=== PATIENT | female | born 1980 | race Caucasian/White ===

== ENCOUNTER → 2016-12-01 09:09 | Outpatient (CLI) | payer MEDICAID | END | disposition home or self-care (01) | LOC: D.US 09:09 | DX: R10.11 Right upper quadrant pain (principal) ==

== ENCOUNTER → 2016-12-08 15:33 | Outpatient (CLI) | payer MEDICAID | END | disposition home or self-care (01) | LOC: D.LDO 15:33 | DX: Z34.03 Encounter for supervision of normal first pregnancy, third trimester (principal) ==

== ENCOUNTER 2017-01-07 05:59 | Inpatient (IN) | payer MEDICAID ==
[~2017-01-07] VITALS: Ht 167.6 cm; Wt 68.5 kg
[2017-01-07 06:26] VITALS: BP 111/69; Ht 167.6 cm; Wt 68.5 kg
[2017-01-07 08:09] LABS: HEMATOCRIT 30.9 % (36.0-48.0); HEMOGLOBIN 10.4 g/dL (12-16); MCH 31.7 pg (26.0-34.0); MCHC 33.7 g/dL (31.0-37.0); MCV 94.2 fL (80.0-100.0); MEAN PLATELET VOLUME 12.5 fL (7.4-10.4); RBC 3.28 10x6/uL (4.00-5.40); RDW 14.3 % (11.5-14.5); WBC 18.2 10x3/uL (4.8-10.8)
[2017-01-07 08:21] LABS: UDS - AMPHET NEGATIVE QUAL (NEGATIVE); UDS - BARB NEGATIVE QUAL (NEGATIVE); UDS - BENZO NEGATIVE QUAL (NEGATIVE); UDS - COCAINE NEGATIVE QUAL (NEGATIVE); UDS - METH NEGATIVE QUAL (NEGATIVE); UDS - OPIATE NEGATIVE QUAL (NEGATIVE); UDS - PCP NEGATIVE QUAL (NEGATIVE); UDS - THC POSITIVE QUAL (NEGATIVE)
--- NOTE | 2017-01-07 20:41 | NUR ---
PT AMBULATORY TO ROOM 1273 FOR CONTINUED POST CARE. PT ORIENTED TO ROOM, BATHROOM, CL USE, AND BEDRAILS. S/O AT BEDSIDE WITH INFANT IN CRIB. PT VERBALIZED UNDERSTANDING OF ROOM ORIENTATION. INSTRUCTED TO CL RN FOR NEXT VOID TO MEASURE, VERBALIZED UNDERSTANDING. BED IN LOW POSITION WITH UPPER SIDE RAILS RAISED X2. CL AND PHONE WITHIN REACH. EXTRA LINENS PROVIDED FOR S/O. SODA GIVEN PER REQUEST. DENIES ADDITIONAL NEEDS AT THIS TIME. WILL CONT TO MONITOR AND ASSIST PRN.
--- NOTE | 2017-01-07 21:04 | NUR ---
PT RECEIVED SITTING UP IN BED. VSS. PT DENIES NEEDS AT THIS TIME. BED LOW. PHONE AND CALL LIGHT IN REACH. SRX2.
[2017-01-07 21:06] VITALS: BP 91/52
--- NOTE | 2017-01-07 21:18 | NUR ---
PT SITTING UP IN BED AAOX3. FOB AND INFANT AT BEDSIDE. PT RATES PAIN 2/10 AT THIS TIME. STATES IBUPROFEN HAS HELPED HER PAIN. S/L NOTED TO RT FOREARM. DRESSING CDI. HEART RRR. LUNG SOUNDS CLEAR BILATERALLY. BOWEL SOUNDS ACTIVE X4 QUADRENTS. ABDOMEN SOFT NON-TENDER. FUNDUS FIRM AND MIDLINE. 2/U. PT DENIES NEED TO PEE AT THIS TIME. SCANT LOCHIA RUBRA NOTED TO BORA PAD AT THIS TIME. PEDAL PULSES EQUAL BILATERALLY. PT DENIES NEEDS AT THIS TIME. BED LOW. PHONE AND CALL LIGHT IN REACH. SRX2.
--- NOTE | 2017-01-07 22:31 | NUR ---
PT SITTING UP IN BED TALKING ON PHONE AT THIS TIME. STATES SHE JUST FINISHED . DENIES NEEDS. BED LOW. PHONE AND CALL LIGHT IN REACH. SRX2.
--- NOTE | 2017-01-08 00:07 | NUR ---
REPORT GIVEN TO BHUPENDRA MCDOWELL
--- NOTE | 2017-01-08 00:10 | NUR ---
THIS RN RESUMING CARE OF PT. RN TO BEDSIDE FOR ROUNDS. PT BONDING WITH INFANT AT THIS TIME. QUESTIONS REGARDING CERTIFICATE PAPER WORK ANSWERED. DENIES PAIN AT THIS TIME. ICE WATER GIVEN PER REQUEST. S/O REMAINS AT BEDSIDE AND SUPPORTIVE OF PT. BED IN LOW POSITION WITH UPPER SIDE RAILS RAISED X2. CL AND PHONE WITHIN REACH. 300 MLS URINE EMPTIED OUT OF HAT. WILL CONT TO MONITOR AND ASSIST PRN.
--- NOTE | 2017-01-08 00:49 | NUR ---
PT CL VIA CL, REPORTS THAT NBN PAPERWORK IS COMPLETE. RN TO ROOM TO GET PAPER WORK. NBN PAPERWORK TAKEN TO NBN. DENIES ADDITIONAL NEEDS AT THIS TIME. S/O REMAINS AT BS AND SUPPORTIVE OF PT. BED IN LOW POSITION WITH UPPER SIDE RAILS RAISED X2. CL AND PHONE WITHIN REACH.
--- NOTE | 2017-01-08 02:10 | NUR ---
ROUNDS MADE. RN TO BEDSIDE. PT LAYING ON LEFT SIDE. RESPIRATIONS REGULAR AND UNLABORED. NO S/S OF DISTRESS NOTED. S/O SLEEPING IN CHAIR AT BEDSIDE. BED IN LOW POSITION WITH UPPER SIDE RAILS RAISED X2. CL AND PHONE WITHIN REACH. WILL CONTINUE TO MONITOR AND ASSIST PRN.
--- NOTE | 2017-01-08 03:43 | NUR ---
PT CALLS VIA CL, REQUESTS PAIN MEDICATION FOR CRAMPING. PT REPORTS THAT SHE JUST FINISHED NURSING FOR 40 MINUTES AND CRAMPING IS "INTENSE" AT THIS TIME. FUNDUS REMAINS FIRM, U2 WITH SMALL AMT RUBRA LOCHIA, NO CLOTS PRESENT. PAIN 5-6/10 AT THIS TIME. REQUESTS NORCO, GIVEN PER REQUEST. BACK TO NBN BY THIS RN PER PT REQUEST. PT REPORTS THAT SHE IS GOING TO TRY TO SLEEP UNTIL NEXT FEEDING. S/O REMAINS AT BEDSIDE, SUPPORTIVE OF PT. BED IN LOW POSITION WITH UPPER SIDE RAILS RAISED X2. CL AND PHONE WITHIN REACH. WILL CONT TO MONITOR AND ASSIST PRN.
--- NOTE | 2017-01-08 04:25 | NUR ---
PAIN REASSESSMENT COMPLETED. PT RESTING ON BACK IN SEMI-FOWLWERS POSITION UPON RN ENTERING ROOM. OPENED EYES WITH DOOR OPENING. REPORTS THAT PAIN IS 2-3/10 AT THIS TIME. DENIES NEED FOR ADDITIONAL INTERVENTION AT THIS TIME. S/O RESTING WITH EYES CLOSED AT BEDSIDE. BED REMAINS IN LOW POSITION WITH UPPER SIDE RAILS RAISED X2. ICE WATER GIVEN TO PT AND S/O, DENIES ADDITIONAL NEEDS. CL AND PHONE WITHIN REACH. WILL CONT TO MONITOR AND ASSIST PRN.
--- NOTE | 2017-01-08 06:20 | NUR ---
ROUNDS MADE. PT REPORTS THAT PAIN IS NOW 4/10, INTERMITTENT ABD CRAMPING. REQUEST MOTRIN, GIVEN PER REQUEST. PT REQUEST NB FOR FEEDING. S/O AT BEDSIDE RESTING WITH EYES CLOSED. DENIES ADDITIONAL NEEDS. BED IN LOW POSITION WITH UPPER SIDE RAILS RAISED X2. CL AND PHONE WITHIN REACH. WILL CONT TO MONITOR AND ASSIST PRN.
--- NOTE | 2017-01-08 06:28 | NUR ---
NB TO ROOM BY THIS RN. ID BANDS VERIFIED AND MATCHED. TO BREAST, GOOD LATCH WITH SUCK AND SWALLOW NOTED.
[2017-01-08 08:00] VITALS: BP 92/52
--- NOTE | 2017-01-08 08:00 | NUR ---
AM ASSESSMENT COMPLETED. PT DENIES HEAVY BLEEDING OR PASSING CLOTS. SIG OTHER SITTING IN BEDSIDE CHAIR HOLDING . SEE EMAR FOR ALL MED ADM BY THIS RN. PT HAS BREAKFAST TRAY ON BEDSIDE TABLE. PT DENIES ALL OTHER NEEDS. SR UP X2, CALL LIGHT AND PHONE WITHIN REACH.
--- NOTE | 2017-01-08 08:40 | NUR ---
DR. PETER TO ROOM.
[2017-01-08 09:06] LABS: BASOPHILS 0.2 % (0-2); EOSINOPHILS 1.8 % (0-7); HEMATOCRIT 31.2 % (36.0-48.0); HEMOGLOBIN 10.3 g/dL (12-16); IMMATURE GRANULOCYTES 0.7 % (0-5); LYMPHOCYTES 18.6 % (15-50); MCH 31.4 pg (26.0-34.0); MCV 95.1 fL (80.0-100.0); MEAN PLATELET VOLUME 12.5 fL (7.4-10.4); MONOCYTES 7.5 % (2-11); NEUTROPHILS 71.2 % (40-80); PLATELET COUNT 216 10x3/uL (130-400); RBC 3.28 10x6/uL (4.00-5.40); RDW 14.2 % (11.5-14.5); WBC 17.9 10x3/uL (4.8-10.8)
--- NOTE | 2017-01-08 10:04 | NUR ---
PATIENT CALLED REQUESTING SALINE LOCK TO BE REMOVED PRIOR TO SHOWER. PT ANTICIPATES GOING HOME THIS AFTERNOON. SALINE LOCK DC'S WITH TIP INTACT. ITEMS IN ROOM FOR SHOWER. INSTRUCTED PATIENT SHE CAN SHOWER AND GET DRESSED SHE DESIRES. VISITOR IN ROOM. INFANT TO NURSERY AT THIS TIME BY Kuldeep ANGELES RN, FOR ASSESSMENT BY DOUBLE NEEDLE OPERATOR.
--- NOTE | 2017-01-08 12:28 | NUR ---
REQUESTED PAIN MEDICATION FOR CRAMPING. STATES "I FINALLY GOT UP A WALKED AND STARTED CRAMPING. ALSO I HAVE AFTER ." HAS VOIDED WITHOUT DIFFICULTY. DISCUSSED PAIN MANAGEMENT OPTIONS. MOTRIN 600 MG GIVEN PO. IF PAIN RELIEF NOT OBTAIN WILL TRY NORCO. SITTING UP IN BED . VISITORS IN ROOM. NO ADDITIONAL REQUESTS.
[2017-01-08 13:00] VITALS: BP 118/62
--- NOTE | 2017-01-08 13:36 | NUR ---
SITTING UP ON EDGE OF BED CHANGING DIAPER. SAYS HER CRAMPING IS BETTER, NOW A 3/10. DENIES NEEDING ANYTHING ELSE FOR PAIN AT THIS TIME. SAYS SHE WANTS TO SPACE THE MEDICATIONS OUT AND THAT SHE MIGHT WANT SOMETHING BEFORE GOING HOME. TO CALL IF ANYTHING IS NEEDED. ANTICIPATE DC HOME AFTER 1600.
[2017-01-08] MEDS ORDERED: IBUPROFEN600 MG PO (13:59)
[2017-01-08] MEDS ORDERED: HYDROCODON-ACE1 EAC7 PO (13:59)
--- NOTE | 2017-01-08 14:15 | NUR ---
DISCHARGE INSTRUCTIONS EXPLAINED TO PT, PT DENIES QUESTIONS. COPIES OF D/C INSTRUCTIONS, PP INSTRUCTION SHEET, AND PRESCRIPTIONS GIVEN TO PT. AWAITING INFANT'S DISCHARGE.
--- NOTE | 2017-01-08 16:00 | NUR ---
PT AMBULATORY OFF UNIT WITH SIG OTHER, INFANT IN CARSEAT, TO PRIVATE VEHICLE.
[2017-01-08 18:17] LABS: RAPID PLASMA REAGIN Non Reactive (Non Reactive)
== END 2017-01-08 16:00 | disposition home or self-care (01) | DRG 775 ==
LOC: D.LD 05:59
PROVIDERS: ADMIT Obstetrics & Gynecology
PROC: 10907ZC Drainage of Amniotic Fluid, Therapeutic from Products of Conception, Via Natural or Artificial Opening (ICD-10-PCS; principal; 2017-01-07)
PROC: 10E0XZZ Delivery of Products of Conception, External Approach (ICD-10-PCS; 2017-01-07)
PROC: 3E033VJ Introduction of Other Hormone into Peripheral Vein, Percutaneous Approach (ICD-10-PCS; 2017-01-07)
DX: O99.344 Other mental disorders complicating childbirth (principal); O99.324 Drug use complicating childbirth; O99.334 Smoking (tobacco) complicating childbirth; F12.90 Cannabis use, unspecified, uncomplicated; Z3A.39 39 weeks gestation of pregnancy; Z37.0 Single live birth; O26.893 Other specified pregnancy related conditions, third trimester; Z67.91 Unspecified blood type, Rh negative; K21.9 Gastro-esophageal reflux disease without esophagitis; J45.909 Unspecified asthma, uncomplicated

== ENCOUNTER 2018-05-26 17:22 | Inpatient (IN) | payer MEDICAID ==
[~2018-05-26] VITALS: Ht 170.2 cm; Wt 54.5 kg
--- NOTE | ~2018-05-26 | MORECARE ---
CASE MANAGEMENT DISCHARGE SUMMARY PATIENT: SONIA MEEHAN UNIT: [id number] ADM DATE: 05/26/18 AGE: 37 : 84 SEX: F ROOM/BED: D.2203 AUTHOR: ROSELYN HARRY PHYSICIAN: REFERRING PHYSICIAN: RAE GASCA DO DATE OF SERVICE: 05/31/18 Discharge Plan Patient Name: SONIA MEEHAN [facility] [facility] 1980 Planned Disposition: Home Anticipated Discharge Date: Discharge Date: 05/29/2018 Expected LOS: Initial Reviewer: [email or web address] Initial Review Date: 05/26/2018 Generated: 05/31/18 11:32 am Comments DCP- Discharge Planning Updated by [email or web address]: Shannan Heard on 05/29/18 10:[address] Met with patient about discharging home today. 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 She has everything she need. There are roommates in her home and she has a 14 year old daughter if she needed something. She plans to drive herself home. Questions answered and denies any needs. CM will continue to follow and assist with DC planning Last DP export: 05/29/18 10:21 a Patient Name: SONIA MEEHAN Page [phone] at 1032 All edits/amendments must be made on the electronic document DICTATION DATE: 05/31/18 1032 VP DATA: VALENCIA 05/31/18 1032 RPT#: [id number] DC DATE:05/29/18 STATUS: DIS IN [facility] [address] [place] [address] END OF REPORT
--- NOTE | ~2018-05-26 | MORECARE ---
CASE MANAGEMENT DISCHARGE SUMMARY PATIENT: SONIA MEEHAN UNIT: [id number] ADM DATE: 05/26/18 AGE: 37 : 84 SEX: F ROOM/BED: D.2203 AUTHOR: ROSELYN HARRY PHYSICIAN: REFERRING PHYSICIAN: RAE GASCA DO DATE OF SERVICE: 05/29/18 Discharge Plan Patient Name: SONIA MEEHAN Facility: [facility]:[place] : 1980 Planned Disposition: Home Anticipated Discharge Date: Discharge Date: Expected LOS: Initial Reviewer: [email or web address] Initial Review Date: 05/26/2018 Generated: 05/29/18 12:21 pm Comments DCP- Discharge Planning Updated by [email or web address]: Shannan Heard on 05/29/18 10:[address] Met with patient about discharging home today. 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 She has everything she need. There are roommates in her home and she has a 14 year old daughter if she needed something. She plans to drive herself home. Questions answered and denies any needs. CM will continue to follow and assist with DC planning Patient Name: SONIA MEEHAN Page [phone] at 1121 All edits/amendments must be made on the electronic document DICTATION DATE: 05/29/18 1121 DIRECTOR AGRICULTURAL SERVICES: VALENCIA 05/29/18 1121 RPT#: [id number] DC DATE: STATUS: ADM IN [facility] [address] [place] [address] END OF REPORT
[~2018-05-26 17:22] MED LIST: HYDROCODON-ACE1 EAC7 PO; IBUPROFEN600 MG PO
[2018-05-26] MEDS ORDERED: WELLBUTRIN SR150 MG PO (17:33)
[2018-05-26] MEDS ORDERED: KLONOPIN1 MG PO (17:33)
[2018-05-26 18:19] LABS: APPEARANCE HAZY (CLEAR); BILIRUBIN NEGATIVE (NEGATIVE); COLOR YELLOW (YELLOW); GLUCOSE NEGATIVE (NEGATIVE); KETONE NEGATIVE (NEGATIVE); NITRITE POSITIVE (NEGATIVE); PROTEIN 1+ mg/dL (NEGATIVE); UROBILINOGEN NORMAL (NORMAL)
[2018-05-26 18:20] LABS: BACTERIA MANY /hpf (NONE SEEN); RED CELLS - URINE 0-5 /hpf (0-5); WHITE CELLS - URINE >50 /hpf (0-5)
[2018-05-26 18:22] LABS: BASOPHILS 0.1 % (0-2); EOSINOPHILS 0.2 % (0-7); HEMOGLOBIN 15.1 g/dL (12-16); IMMATURE GRANULOCYTES 0.4 % (0-5); LYMPHOCYTES 5.7 % (15-50); MCH 33.6 pg (26.0-34.0); MCHC 34.3 g/dL (31.0-37.0); MCV 97.8 fL (80.0-100.0); MEAN PLATELET VOLUME 11.5 fL (7.4-10.4); MONOCYTES 15.6 % (2-11); RDW 13.2 % (11.5-14.5); WBC 18.9 10x3/uL (4.8-10.8)
[2018-05-26 18:24] LABS: PLATELET COUNT 268 10x3/uL (130-400)
[2018-05-26 18:36] LABS: ALBUMIN 3.4 g/dL (3.4-5.0); ANION GAP 14.9 mmol/L (8-16); BILIRUBIN - TOTAL 0.79 mg/dL (0.2-1.3); CALCIUM 9.6 mg/dL (8.5-10.1); CARBON DIOXIDE 27.7 mmol/L (21.0-32.0); CREATININE - SERUM 1.1 mg/dL (0.6-1.3); POTASSIUM - SERUM 3.6 mmol/L (3.5-5.1); PROTEIN - SERUM 8.6 g/dL (6.4-8.2)
[2018-05-26 23:23] VITALS: BP 98/46; Ht 170.2 cm; Wt 54.5 kg
[2018-05-27] VITALS: BP 89/53
[2018-05-27 04:00] VITALS: BP 87/44
[2018-05-27 06:11] LABS: BASOPHILS 0.1 % (0-2); EOSINOPHILS 0.7 % (0-7); HEMATOCRIT 36.7 % (36.0-48.0); HEMOGLOBIN 12.4 g/dL (12-16); IMMATURE GRANULOCYTES 0.2 % (0-5); LYMPHOCYTES 5.6 % (15-50); MCH 32.8 pg (26.0-34.0); MCHC 33.8 g/dL (31.0-37.0); MCV 97.1 fL (80.0-100.0); MEAN PLATELET VOLUME 11.8 fL (7.4-10.4); MONOCYTES 17.5 % (2-11); NEUTROPHILS 75.9 % (40-80); PLATELET COUNT 215 10x3/uL (130-400); RBC 3.78 10x6/uL (4.00-5.40); RDW 13.2 % (11.5-14.5); WBC 17.6 10x3/uL (4.8-10.8)
[2018-05-27 06:42] LABS: ANION GAP 14.2 mmol/L (8-16); CALCIUM 8.2 mg/dL (8.5-10.1); CARBON DIOXIDE 25.1 mmol/L (21.0-32.0); POTASSIUM - SERUM 3.3 mmol/L (3.5-5.1)
[2018-05-27 08:51] VITALS: BP 128/81
[2018-05-27 12:53] VITALS: BP 100/68
[2018-05-27 16:25] VITALS: BP 151/55
[2018-05-27 17:36] LABS: HCG SERUM NEGATIVE (NEGATIVE)
[2018-05-27 20:00] VITALS: BP 102/61
[2018-05-27 22:24] LABS: HCG URINE NEGATIVE (NEGATIVE)
[2018-05-28] VITALS: BP 108/69
[2018-05-28 04:00] VITALS: BP 98/56
[2018-05-28 05:32] LABS: BASOPHILS 0.1 % (0-2); EOSINOPHILS 1.4 % (0-7); HEMOGLOBIN 11.6 g/dL (12-16); IMMATURE GRANULOCYTES 0.2 % (0-5); LYMPHOCYTES 12.4 % (15-50); MCHC 34.1 g/dL (31.0-37.0); MCV 96.6 fL (80.0-100.0); MONOCYTES 17.1 % (2-11); NEUTROPHILS 68.8 % (40-80); PLATELET COUNT 254 10x3/uL (130-400); RBC 3.52 10x6/uL (4.00-5.40); RDW 13.5 % (11.5-14.5); WBC 13.8 10x3/uL (4.8-10.8)
[2018-05-28 06:06] LABS: ALKALINE PHOSPHATASE 57 U/L (46-116); ALT (SGPT) 11 U/L (10-68); BILIRUBIN - TOTAL 0.37 mg/dL (0.2-1.3); CARBON DIOXIDE 22.8 mmol/L (21.0-32.0); CHLORIDE - SERUM 102 mmol/L (98-107); CREATININE - SERUM 0.8 mg/dL (0.6-1.3); GLUCOSE 82 mg/dL (74-106); POTASSIUM - SERUM 3.5 mmol/L (3.5-5.1); SODIUM 136 mmol/L (136-145); eGFR NON AFRICAN AMERICAN 86 mL/min (90-120)
[2018-05-28 06:08] LABS: ALBUMIN 2.3 g/dL (3.4-5.0); CALC OSMOLALITY 268 mosm/kg (275-300); PROTEIN - SERUM 5.5 g/dL (6.4-8.2); UREA NITROGEN 6 mg/dL (7-18)
[2018-05-28 09:31] VITALS: BP 96/61
[2018-05-28 12:37] VITALS: BP 110/69
[2018-05-28 17:28] VITALS: BP 110/64
[2018-05-28 20:00] VITALS: BP 134/86
[2018-05-29] VITALS: BP 114/75
[2018-05-29 04:00] VITALS: BP 108/71
[2018-05-29 05:23] LABS: BASOPHILS 0.3 % (0-2); EOSINOPHILS 4.3 % (0-7); HEMATOCRIT 31.2 % (36.0-48.0); HEMOGLOBIN 10.5 g/dL (12-16); IMMATURE GRANULOCYTES 0.1 % (0-5); LYMPHOCYTES 27.7 % (15-50); MCH 32.8 pg (26.0-34.0); MCHC 33.7 g/dL (31.0-37.0); MCV 97.5 fL (80.0-100.0); MEAN PLATELET VOLUME 11.2 fL (7.4-10.4); MONOCYTES 17.5 % (2-11); NEUTROPHILS 50.1 % (40-80); PLATELET COUNT 257 10x3/uL (130-400); RDW 13.9 % (11.5-14.5)
[2018-05-29 05:32] LABS: WBC 7.2 10x3/uL (4.8-10.8)
[2018-05-29 06:29] LABS: ALKALINE PHOSPHATASE 50 U/L (46-116); ALT (SGPT) 12 U/L (10-68); BILIRUBIN - TOTAL 0.19 mg/dL (0.2-1.3); CALC OSMOLALITY 275 mosm/kg (275-300); CARBON DIOXIDE 24.4 mmol/L (21.0-32.0); CHLORIDE - SERUM 105 mmol/L (98-107); CREATININE - SERUM 0.8 mg/dL (0.6-1.3); GLUCOSE 94 mg/dL (74-106); POTASSIUM - SERUM 3.3 mmol/L (3.5-5.1); PROTEIN - SERUM 5.5 g/dL (6.4-8.2); SODIUM 140 mmol/L (136-145); eGFR NON AFRICAN AMERICAN 86 mL/min (90-120)
[2018-05-29 06:30] LABS: UREA NITROGEN 4 mg/dL (7-18)
[2018-05-29 08:30] VITALS: BP 113/76
[2018-05-29] MEDS ORDERED: LEVAQUIN750 MG PO (10:39)
[2018-05-29] MEDS ORDERED: HYDROCODON-ACE1 EAC7 PO (10:41)
== END 2018-05-29 12:52 | disposition home or self-care (01) | DRG 690 ==
LOC: D.ER 17:22 → D.MS 19:44 → D.EDHOLD 19:44 → D.MS 20:30
PROVIDERS: Family Medicine
DX: N10 Acute pyelonephritis (principal); F33.9 Major depressive disorder, recurrent, unspecified; J45.909 Unspecified asthma, uncomplicated; F31.9 Bipolar disorder, unspecified

== ENCOUNTER 2020-12-14 15:20 | Emergency (ER) | payer MEDICAID ==
[~2020-12-14] VITALS: Ht 170.2 cm; Wt 46.8 kg
[~2020-12-14 15:20] MED LIST changes: +KLONOPIN1 MG PO; +LEVAQUIN750 MG PO; +WELLBUTRIN SR150 MG PO
[2020-12-14 15:22] VITALS: Ht 170.2 cm; Wt 46.8 kg
[2020-12-14 15:43] LABS: BILIRUBIN NEGATIVE (NEGATIVE); KETONE NEGATIVE mg/dL (< 1+); NITRITE NEGATIVE (NEGATIVE); PH 7.5 (5.0-8.0); UROBILINOGEN NORMAL mg/dL (< 2); WHITE CELLS - URINE <1 HPF (0-4)
[2020-12-14 15:55] LABS: UDS - AMPHET NEGATIVE QUAL (NEGATIVE); UDS - BARB NEGATIVE QUAL (NEGATIVE); UDS - BENZO NEGATIVE QUAL (NEGATIVE); UDS - COCAINE NEGATIVE QUAL (NEGATIVE); UDS - OPIATE NEGATIVE QUAL (NEGATIVE); UDS - PCP NEGATIVE QUAL (NEGATIVE); UDS - THC POSITIVE QUAL (NEGATIVE)
[2020-12-14 15:56] LABS: SQUAMOUS EPITHELIAL 4 HPF (0-4)
[2020-12-14 15:57] LABS: BASOPHILS 0.9 % (0-2); EOSINOPHILS 1.2 % (0-7); HEMATOCRIT 39.8 % (36.0-48.0); HEMOGLOBIN 13.2 g/dL (12-16); LYMPHOCYTES 38.8 % (15-50); MCH 32.7 pg (26.0-34.0); MCHC 33.3 g/dL (31.0-37.0); MCV 98.3 fL (80.0-100.0); MEAN PLATELET VOLUME 8.9 fL (7.4-10.4); MONOCYTES 9.4 % (2-11); NEUTROPHILS 49.7 % (40-80); PLATELET COUNT 308 10x3/uL (130-400); RBC 4.05 10x6/uL (4.00-5.40); WBC 8.8 10x3/uL (4.8-10.8)
[2020-12-14 16:09] LABS: HCG URINE NEGATIVE (NEGATIVE)
[2020-12-14 16:11] LABS: CALC OSMOLALITY 275 mosm/kg (275-300); CALCIUM 8.9 mg/dL (8.5-10.1); CARBON DIOXIDE 29.9 mmol/L (21.0-32.0); CHLORIDE - SERUM 103 mmol/L (98-107); CREATININE - SERUM 0.8 mg/dL (0.6-1.3); GLUCOSE 109 mg/dL (74-106); POTASSIUM - SERUM 4.3 mmol/L (3.5-5.1); SODIUM 138 mmol/L (136-145); UREA NITROGEN 10 mg/dL (7-18); eGFR NON AFRICAN AMERICAN 85 mL/min (90-120)
[2020-12-14 16:14] LABS: ALKALINE PHOSPHATASE 76 U/L (30-120); ALT (SGPT) 25 U/L (10-68); BILIRUBIN - TOTAL 0.19 mg/dL (0.2-1.3); MAGNESIUM - SERUM 1.8 mg/dL (1.8-2.4); PROTEIN - SERUM 7.6 g/dL (6.4-8.2)
[2020-12-14 16:47] VITALS: BP 124/78
== END 2020-12-14 16:48 | disposition home or self-care (01) ==
LOC: D.ER 15:20
PROVIDERS: Family Medicine
DX: Z00.00 Encounter for general adult medical examination without abnormal findings (principal); F10.10 Alcohol abuse, uncomplicated; J45.909 Unspecified asthma, uncomplicated